=== PATIENT | female | born 1935 | race Two or more races ===

== ENCOUNTER → 2018-05-09 | Outpatient (CLI) | payer OTHER ==
[~2018-05-09] MED LIST: MOTRIN800 MG PO; ULTRACET PO
== END | disposition home or self-care (01) ==
LOC: MAMO-SONO 10:32
DX: Z12.31 Encounter for screening mammogram for malignant neoplasm of breast (principal); Z87.898 Personal history of other specified conditions; N60.11 Diffuse cystic mastopathy of right breast; N60.12 Diffuse cystic mastopathy of left breast

== ENCOUNTER → 2018-05-09 | Outpatient (CLI) | payer OTHER | END | disposition home or self-care (01) | LOC: NUCLEAR 11:00 | DX: M81.0 Age-related osteoporosis without current pathological fracture (principal) ==

== ENCOUNTER 2019-02-14 07:58 | Outpatient (CLI) | payer OTHER | END 2019-02-14 08:14 | disposition home or self-care (01) | LOC: MRI 07:58 | DX: M48.062 Spinal stenosis, lumbar region with neurogenic claudication (principal); M48.07 Spinal stenosis, lumbosacral region | CPT/HCPCS: 72148 ==

== ENCOUNTER 2020-05-20 13:27 | Outpatient (CLI) | payer OTHER | END 2020-05-20 13:29 | disposition home or self-care (01) | LOC: SONOGRAMA 13:27 | PROVIDERS: ATTEND Family Medicine | DX: M70.71 Other bursitis of hip, right hip (principal) ==

== ENCOUNTER 2020-08-19 10:45 | Outpatient (CLI) | payer OTHER | END 2020-08-19 10:58 | disposition home or self-care (01) | LOC: MAMO-SONO 10:45 | PROVIDERS: ATTEND Surgery | DX: N60.11 Diffuse cystic mastopathy of right breast (principal); N60.12 Diffuse cystic mastopathy of left breast ==